=== PATIENT | female | born 1975 | race African-American/Black ===

== ENCOUNTER 2021-06-12 08:25 | Inpatient (IN) | payer OTHER ==
[2021-06-12] MEDS ORDERED: PROMETHAZINE HCL 25 MG/1 ML VIAL IVPB ONE (08:49)
[2021-06-12] MEDS ORDERED: BUTORPHANOL TARTRATE 2 MG/ML VIAL IVPB PRN (08:49)
[2021-06-12] MEDS ORDERED: DINOPROSTONE 10 MG VAGINAL SUPPOSITORY VG ONE (08:53)
[2021-06-12] MEDS: ELECTROLYTE-148 SOLN 1,000 ML IV SCH (09:15)
[2021-06-12 09:22] VITALS: BMI 35.9
[2021-06-12] MEDS ORDERED: OXYTOCIN 30 UNITS in 0.9% NS 30 UNIT/500 ML INFUS.BAG IVPB ONE (09:31)
[2021-06-12] MEDS ORDERED: AMPICILLIN SODIUM 2 GM VIAL ONE (09:31)
[2021-06-12] MEDS: OXYTOCIN 30 UNITS in 0.9% NS 30 UNIT/500 ML INFUS.BAG IVPB SCH (09:40)
[2021-06-12] MEDS ORDERED: AMPICILLIN - 2 GM in SODIUM CHLORIDE 100 ML IVPB ONE (10:00)
[2021-06-12] MEDS ORDERED: AMPICILLIN SODIUM 1 GM VIAL ONE ×3 (13:56→21:36)
[2021-06-12] MEDS: AMPICILLIN - 1 GM in SODIUM CHLORIDE 100 ML IVPB SCH ×3 (14:07→22:00)
[2021-06-12] MEDS ORDERED: FENTANYL/BUPIVACAINE/NS/PF - PCEA - 50 ML DISP.SYRIN EP ONE ×2 (14:27→20:06)
[2021-06-12] MEDS: FENTANYL/BUPIVACAINE/NS/PF - PCEA - 50 ML DISP.SYRIN EP SCH ×2 (15:20→19:45)
[2021-06-12] MEDS ORDERED: NALOXONE HCL 0.4 MG/ML VIAL IVPUSH PRN (15:54)
[2021-06-12] MEDS ORDERED: PCA PUMP NR ONE (20:06)
[2021-06-13] MEDS ORDERED: FENTANYL/BUPIVACAINE/NS/PF - PCEA - 50 ML DISP.SYRIN EP ONE ×3 (01:11→10:26)
[2021-06-13] MEDS: FENTANYL/BUPIVACAINE/NS/PF - PCEA - 50 ML DISP.SYRIN EP SCH ×4 (01:15→15:59)
[2021-06-13] MEDS ORDERED: AMPICILLIN SODIUM 1 GM VIAL ONE ×3 (02:27→09:29)
[2021-06-13] MEDS: AMPICILLIN - 1 GM in SODIUM CHLORIDE 100 ML IVPB SCH ×3 (02:30→09:56)
[2021-06-13] MEDS ORDERED: BENZOCAINE 28 GM HEMORRHOIDAL OINTMENT TP PRN (08:05)
[2021-06-13] MEDS ORDERED: BISACODYL 10 MG SUPP.RECT PR PRN (08:05)
[2021-06-13] MEDS ORDERED: BENZOCAINE 20% 57 GM BOTTLE TP PRN (08:05)
[2021-06-13] MEDS ORDERED: WITCH HAZEL 50% (TUCKS) 40 PAD/JAR PAD TP PRN (08:05)
[2021-06-13] MEDS ORDERED: METHYLERGONOVINE MALEATE 0.2 MG/1 ML AMP IM PRN (08:05)
[2021-06-13] MEDS ORDERED: OXYTOCIN 30 UNITS in 0.9% NS 30 UNIT/500 ML INFUS.BAG IVPB ONE (08:12)
[2021-06-13] MEDS ORDERED: PCA PUMP NR ONE (10:26)
[2021-06-13] MEDS ORDERED: BUPIVACAINE HCL/PF 0.25% (2.5MG/ML) 10 ML VIAL ONE ×2 (12:06→13:10)
[2021-06-13] MEDS ORDERED: LIDOCAINE HCL 1% PRESERVATIVE FREE - 30ML VIAL ONE (13:10)
[2021-06-13] MEDS ORDERED: OXYTOCIN 20 UNITS in 0.9% NS 20 UNIT/1,000 ML INFUS.BAG IV SCH (15:00)
[2021-06-13] MEDS ORDERED: ACETAMINOPHEN 325 MG TABLET (FP) ONE (15:54)
[2021-06-13] MEDS: OXYTOCIN 30 UNITS in 0.9% NS 30 UNIT/500 ML INFUS.BAG IVPB SCH (15:57)
[2021-06-13] MEDS: ACETAMINOPHEN 325 MG TABLET (FP) PO PRN (16:00)
[2021-06-13 16:10] LABS: CORD BASE EXCESS -9.6 mmol/L (0-2); CORD HCO3 18.1 mmHg (20-29); CORD PCO2 45.6 mmHg (30-78); CORD pH 7.216 (7.14-7.44)
[2021-06-13 16:11] LABS: CORD BASE EXCESS -6.3 mmol/L (0-2); CORD HCO3 19.7 mmHg (20-29); CORD PCO2 40.5 mmHg (30-78); CORD pH 7.304 (7.14-7.44)
[2021-06-14] MEDS: IBUPROFEN 600 MG TABLET (FP) PO PRN ×2 (04:54→19:43)
[2021-06-14 08:11] LABS: BASO % 0.3 % (0-2.0); EOS % 1.5 % (0-4.5); HEMATOCRIT 28.6 % (32.4-45.2); HEMOGLOBIN 9.5 GM/dL (10.7-15.3); LYMPH % 18.6 % (8-40); MCH 25.8 pg (25.7-33.7); MCHC 33.2 g/dl (32.0-36.0); MEAN CELL VOLUME 77.6 fl (80-96); MEAN PLT VOLUME 7.9 fl (7.5-11.1); MONO % 9.7 % (3.8-10.2); NEUT % 69.9 % (42.8-82.8); PLATELET COUNT 239 10^3/uL (134-434); RBC 3.68 M/mm3 (3.60-5.2); RDW 15.4 % (11.6-15.6); WHITE BLOOD COUNT 11.3 K/mm3 (4.0-10.0)
[2021-06-14] MEDS ORDERED: FLU VACC QS2021-22(6MOS UP)/PF 60 MCG/0.5 ML SYRINGE IM ONE (10:00)
[2021-06-14] MEDS ORDERED: DIPHTH,PERTUSS(ACELL),TET 0.5 ML DISP.SYRIN IM ONE (10:00)
[2021-06-14] MEDS: ELECTROLYTE-148 SOLN 1,000 ML IV SCH (10:34)
[2021-06-14] MEDS: ACETAMINOPHEN 325 MG TABLET (FP) PO PRN (19:44)
[2021-06-15 09:52] VITALS: BP 134/86; PULSE 90; TEMP 98.2
== END 2021-06-15 12:40 | disposition home or self-care (01) | DRG 807 ==
LOC: JLDR 08:25 → J3W 06-13 16:30
PROVIDERS: ADMIT Obstetrics & Gynecology; ATTEND Obstetrics & Gynecology
PROC: 10E0XZZ Delivery of Products of Conception, External Approach (ICD-10-PCS; principal; 2021-06-13)
DX: O99.824 Streptococcus B carrier state complicating childbirth (principal); Z37.0 Single live birth; Z3A.39 39 weeks gestation of pregnancy
CPT/HCPCS: 36415; 36600; 59409; 82803; 85025; 90686; 90715; G0008